=== PATIENT | male | born 1990 | race Caucasian/White ===

== ENCOUNTER 2017-12-20 16:49 | Emergency (ER) | payer OTHER ==
[2017-12-20] MEDS ORDERED: TDAP ADULT 0.5 ML INJ (BOOSTRIX) IM ONE (17:08)
--- NOTE | 2017-12-20 17:10 | EDPHY ---
H & P Time Seen by Provider: 12/20/17 17:01 HPI/ROS: Chief complaint: Left middle finger laceration History of present illness: This is a 27-year-old male who presents to the emergency department for left middle finger laceration. Patient was using a box stapler when it slipped cutting the tip of the finger. He cut off the very tip. There has been no pain. There has been bleeding, controlled with a dressing. He is unsure when he received his last tetanus shot. Smoking Status: Never smoked Physical Exam: General: Alert, nontoxic Skin: There is amputation of the very distal skin of the left 3rd finger. Does not extend deep. No exposure of bone. No foreign body contamination. Musculoskeletal: Patient is flexing and extending it is left 3rd finger in the DIP, PIP and MCP joint well. Vascular: Capillary refill brisk in the left 3rd finger. Neurologic: Sensation appears intact throughout the left 3rd finger. Constitutional: Initial Vital Signs Temperature (C) 36.6 C 12/20/17 16:56 Heart Rate 99 12/20/17 16:56 Respiratory Rate 17 12/20/17 16:56 Blood Pressure 134/86 H 12/20/17 16:56 O2 Sat (%) 93 12/20/17 16:56 O2 Delivery Mode Room Air Allergies/Adverse Reactions: No Known Allergies Allergy (Unverified 12/20/17 16:55) Home Medications: Medication Instructions Recorded VMITALI 12/20/17 MDM/Departure - MDM Medications Given: Discontinued Medications Diphtheria/Tetanus/Acell Pertussis (Boostrix) 0.5 ml IM .ONCE ONE Stop: 12/20/17 17:09 Last Admin: 12/20/17 17:24 Dose: 0.5 ml ED Course/Re-evaluation: Patient seen under the supervision of my primary supervising physician Dr. Griselda Zuniga. Patient presents to the emergency department for an injury to his left 3rd finger. He has a very minor tissue defect. I do not believe attempts at repairing it would be of benefit. I believe this will heal well with secondary intention. Wound has been cleaned and dressed. His tetanus has been updated. Home care is discussed. Return precautions are given. - Depart Disposition: Home, Routine, Self-Care Clinical Impression: Fingertip amputation Qualifiers: Encounter type: initial encounter Qualified Code(s): S68.129A - Partial traumatic metacarpophalangeal amputation of unspecified finger, initial encounter Condition: Good Instructions: Acute Wounds (ED) Additional Instructions: Follow-up with a primary care doctor for recheck Keep wound clean with soap and water If symptoms worsen or new symptoms develop return to the emergency room for recheck Referrals: NONE *PRIMARY CARE P,. [Primary Care Provider] - As per Instructions [facility],. [Clinic] - As per Instructions Doe Rubalcava MD [Medical Doctor] - As per Instructions
[2017-12-20 17:27] VITALS: BP 122/80; PULSE 88; RESP 16; TEMP 98.6; O2SAT 97
== END 2017-12-20 17:28 | disposition home or self-care (01) ==
DX: S68.123A Partial traumatic metacarpophalangeal amputation of left middle finger, initial encounter (principal); Z23 Encounter for immunization; W45.8XXA Other foreign body or object entering through skin, initial encounter